=== PATIENT | male | born 1965 | race Caucasian/White ===

== ENCOUNTER 2020-11-11 11:34 | Emergency (ER) | payer MEDICARE ==
[~2020-11-11 11:34] MED LIST: FLOMAX0.4 MG PO; HYTRIN1 MG PO; LACTINEX1 EACH PO; MICON-GUARD 2% TOP; MOTRIN600 MG PO; NORVASC5 MG PO; NYSTATIN SUSP1 ML/ML SSW; PHENASEPTIC177 ML PO; SANTYL15 GM TOP; SEROQUEL 25MG T25 MG PO; SINGULAIR10 MG PO; TEGRETOL200 M1 PO; TEGRETOL200 MG PO; WELCHOL625 MG PO
[2020-11-11 12:01] LABS: BASOPHIL 0.3 % (0-2); EOSINOPHIL 0.3 % (0-5); HCT 43.5 % (42.0-52.0); HGB 13.8 g/dl (13.2-18.0); LYMPHOCYTE 24.1 % (15-48); MCH 28.8 pg (25.0-31.0); MCHC 31.7 g/dL (32.0-36.0); MCV 90.8 fL (78.0-100.0); MONOCYTE 13.6 % (0-12); MPV 9.7 fL (6.0-9.5); NEUTROPHIL 61.5 % (41-80); NRBC 0; PLT 237 K/uL (150-400); RBC 4.79 M/uL (4.70-6.00); RDW 13.9 % (11.5-14.0); WBC 6.4 K/uL (4.0-10.5)
[2020-11-11 12:09] LABS: INR 1.26 (0.9-1.2); PTT 27.7 SECONDS (22.2-34.7)
[2020-11-11 12:13] LABS: ALBUMIN 3.3 g/dL (3.4-5.0); BILIRUBIN - TOTAL 0.3 mg/dL (0.2-1.0); BUN/CREAT RATIO (CALC) 15.1 RATIO; CREATININE 0.93 mg/dL (0.67-1.17); GLOBULIN (CALCULATION) 3.9 g/dL; POTASSIUM 4.1 mmol/L (3.5-5.1); TOTAL PROTEIN 7.2 g/dL (6.4-8.2)
[2020-11-11] MEDS ORDERED: DICLOFENAC SODI75 MG PO (15:17)
[2020-11-11] MEDS ORDERED: ZPAK PO (15:17)
== END 2020-11-11 15:40 | disposition home or self-care (01) ==
LOC: FER 11:34
PROVIDERS: Emergency Medicine
DX: R07.89 Other chest pain (principal); J98.11 Atelectasis; I10 Essential (primary) hypertension; Z88.0 Allergy status to penicillin; Z88.1 Allergy status to other antibiotic agents; Z79.899 Other long term (current) drug therapy; Z87.820 Personal history of traumatic brain injury
CPT/HCPCS: 36415; 71045; 80053; 84484; 85025; 85379; 85610; 85730; 93005; J1885

== ENCOUNTER 2021-09-28 07:03 | Emergency (ER) | payer MEDICARE ==
[~2021-09-28 07:03] MED LIST changes: +DICLOFENAC SODI75 MG PO; +ZPAK PO
== END 2021-09-28 09:12 | disposition home or self-care (01) ==
LOC: FER 07:03
DX: L97.829 Non-pressure chronic ulcer of other part of left lower leg with unspecified severity (principal); I10 Essential (primary) hypertension; Z88.0 Allergy status to penicillin; Z88.1 Allergy status to other antibiotic agents; Z88.8 Allergy status to other drugs, medicaments and biological substances
CPT/HCPCS: 99283